=== PATIENT | female | born 1975 | race Caucasian/White ===

== ENCOUNTER 2017-10-18 21:11 | Inpatient (IN) | payer OTHER ==
[2017-10-18] MEDS ORDERED: MAG HYDROX/AL HYDROX/SIMETH 30 ML UDC PO STA (21:34)
[2017-10-18] MEDS ORDERED: FAMOTIDINE 20 MG in SODIUM CHLORIDE 0.9% 50 ML IV ONE (21:34)
[2017-10-18] MEDS ORDERED: LIDOCAINE VISCOUS 2% 15 ML UDC MM STA (21:35)
[2017-10-18 21:40] LABS: BASOPHILS % (AUTO) 0.5 %; EOSINOPHILS # (AUTO) 0.2 10^3/uL (0.0-0.7); EOSINOPHILS % (AUTO) 1.8 %; HGB - HEMOGLOBIN 12.6 g/dL (12.0-16.0); LYMPHOCYTES # (AUTO) 2.2 10^3/uL (1.5-3.5); MEAN CORPUSCULAR HEMOGLOBIN 30.1 pg (27.0-31.0); MEAN CORPUSCULAR HGB CONC 33.8 g/dL (32.0-36.0); MEAN CORPUSCULAR VOLUME 89.3 fL (81.0-99.0); MEAN PLATELET VOLUME 8.2 fL (7.9-10.8); MONOCYTES # (AUTO) 0.7 10^3/uL (0.0-1.0); MONOCYTES % (AUTO) 7.7 %; NEUTROPHILS # (AUTO) 5.8 10^3/uL (1.5-6.6); PLT - PLATELET COUNT 184 10^3/uL (130-450); RED BLOOD COUNT 4.19 10^6/uL (4.20-5.40); RED CELL DISTRIBUTION WIDTH 12.8 % (12.0-15.0); WHITE BLOOD COUNT 8.9 x10^3/uL (4.8-10.8)
[2017-10-18 21:54] LABS: ALBUMIN/GLOBULIN RATIO 1.1 (1.0-2.2); BILIRUBIN,TOTAL 0.3 mg/dL (0.2-1.0); CALCIUM 8.9 mg/dL (8.5-10.3); CREATININE 0.9 mg/dL (0.4-1.0); TOTAL PROTEIN 7.6 g/dL (6.7-8.2)
[2017-10-18 21:58] LABS: TROPONIN I < 0.04 ng/mL (<0.49)
[2017-10-18 22:00] LABS: CREATINE KINASE MB 2.6 ng/mL (0.6-6.3)
--- NOTE | 2017-10-18 22:03 | XRAY Report ---
Procedure Date: 10/18/2017 Accession Number: [id number] / [id number] Procedure: XR - Chest 2 View X-Ray CPT Code: 99048 FULL RESULT: EXAM: CHEST RADIOGRAPHY EXAM DATE: 10/18/2017 09:51 PM. CLINICAL HISTORY: CP. COMPARISON: None. TECHNIQUE: 2 views. FINDINGS: Lungs/Pleura: Clear. No effusion or pneumothorax. Mediastinum: Heart and mediastinal contours are unremarkable. Upper lobe vessels not distended. Other: None. IMPRESSION: No acute disease. RADIA
--- NOTE | 2017-10-18 23:31 | Ultrasound Report ---
Procedure Date: 10/18/2017 Accession Number: [id number] / [id number] Procedure: US - Abdomen Limited CPT Code: FULL RESULT: EXAM: ABDOMEN ULTRASOUND LIMITED, RUQ EXAM DATE: 10/18/2017 11:16 PM. CLINICAL HISTORY: Epigastric pain. COMPARISON: None. TECHNIQUE: Real-time scanning was performed with static images obtained. FINDINGS: Liver: Echotexture within normal limits without suspicious abnormality seen. Main portal vein flow: Hepatopetal. Gallbladder: Multiple gallstones, including an 18 mm stone lodged in the neck. Wall thickening at 4 mm with pericholecystic fluid present. There is reported tenderness. Biliary System: CBD measures 2 mm. No intrahepatic or extrahepatic ductal dilatation. Other: None. IMPRESSION: Findings consistent with acute cholecystitis. RADIA
[2017-10-18] MEDS ORDERED: PROMETHAZINE INJ 25 MG in SODIUM CHLORIDE 0.9% 50 ML IV STA (23:34)
[2017-10-18] MEDS ORDERED: KETOROLAC 60 MG/2 ML VIAL IVP STA (23:35)
[2017-10-18] MEDS ORDERED: diphenhydrAMINE INJ 50 MG/ML VIAL IVP STA (23:35)
[2017-10-18] MEDS ORDERED: HYDROmorphone 1 MG/ML CARPUJECT IVP STA (23:42)
--- NOTE | 2017-10-18 23:43 | ED Physician Documentation ---
History of Present Illness - Stated complaint Stated Complaint: CHEST DISCOMFORT - Chief complaint Chief Complaint: Cardiac - History obtained from History obtained from: Patient - History of Present Illness Timing: Today - Additonal information Additional information: 42-year-old female presents the emergency department with worsening epigastric pain which started this afternoon. The patient's pain has been continuous and worsening and is described as a squeezing sensation which is associated with nausea. No radiation of the symptoms. No triggering factors. No relieving factors. Review of Systems Constitutional: reports: Fatigue. denies: Fever Eyes: denies: Discharge Ears: denies: Ear pain Nose: denies: Congestion Throat: denies: Sore throat Cardiac: reports: Chest pain / pressure Respiratory: reports: Dyspnea GI: reports: Abdominal Pain, Nausea : denies: Dysuria Skin: denies: Rash Musculoskeletal: denies: Joint pain Neurologic: denies: Headache Psychiatric: denies: Depressed Immunocompromised: denies: Chemotherapy PD PAST MEDICAL HISTORY - Present Medications Home Medications: Ambulatory Orders Medication Instructions Recorded Confirmed Sertraline [Zoloft] 50 mg PO DAILY 10/18/17 10/18/17 - Allergies Allergies/Adverse Reactions: Allergies Allergy/AdvReac Type Severity Reaction Status Date / Time No Known Drug Allergies Allergy Verified 10/18/17 21:26 PD ED PE NORMAL - General General: Alert and oriented X 3 - HEENT HEENT: Atraumatic, PERRL, EOMI, Ears normal - Neck Neck: Supple, no meningeal sign - Cardiac Cardiac: RRR, Strong equal pulses - Respiratory Respiratory: No respiratory distress, Clear bilaterally - Abdomen Abdomen: Normal bowel sounds - Derm Derm: Normal color - Extremities Extremities: No deformity, Normal ROM s pain - Neuro Neuro: Alert and oriented X 3, Normal speech - Psych Psych: Normal mood PD ED PE EXPANDED - General General: In Pain - Abdomen Abdomen: Tender to palpation, Epigastric. No: Rebound, Guarding Results - Vitals Vitals: Vital Signs - 24 hr 10/18/17 10/18/17 10/18/17 21:18 21:41 21:56 Temperature 37.1 C Heart Rate 54 L 50 L Respiratory 14 17 15 Rate Blood Pressure 152/90 H 138/97 H O2 Saturation 100 98 10/18/17 10/18/17 23:24 23:31 Temperature Heart Rate 51 L Respiratory 17 16 Rate Blood Pressure 144/90 H O2 Saturation 100 Oxygen O2 Source Room air - EKG (time done) 21:26 Rate: Rate (enter#) Rhythm: NSR Intervals: Normal AK, QRS normal Ischemia: Non specific changes Other comments: Other comments - Labs Labs: Laboratory Tests 10/18/17 10/18/17 10/18/17 21:34 21:34 21:34 WBC 8.9 RBC 4.19 L Hgb 12.6 Hct 37.4 MCV 89.3 MCH 30.1 MCHC 33.8 RDW 12.8 Plt Count 184 MPV 8.2 Neut # (Auto) 5.8 Lymph # (Auto) 2.2 [place] # (Auto) 0.7 Eos # (Auto) 0.2 Baso # (Auto) 0.0 Absolute Nucleated RBC 0.00 Nucleated RBC % 0.0 D-Dimer Sodium Potassium Chloride Carbon Dioxide Anion Gap BUN Creatinine Estimated GFR (MDRD) Glucose Calcium Magnesium 2.0 Total Bilirubin AST ALT Alkaline Phosphatase Total Creatine Kinase 233 CK-MB (CK-2) 2.6 Troponin I < 0.04 Total Protein Albumin Globulin Albumin/Globulin Ratio Lipase 10/18/17 10/18/17 21:34 21:34 WBC RBC Hgb Hct MCV MCH MCHC RDW Plt Count MPV Neut # (Auto) Lymph # (Auto) [place] # (Auto) Eos # (Auto) Baso # (Auto) Absolute Nucleated RBC Nucleated RBC % D-Dimer 202.0 Sodium 135 Potassium 3.9 Chloride 100 L Carbon Dioxide 26 Anion Gap 9.0 BUN 20 Creatinine 0.9 Estimated GFR (MDRD) 68 L Glucose 116 H Calcium 8.9 Magnesium Total Bilirubin 0.3 AST 21 ALT 19 Alkaline Phosphatase 45 Total Creatine Kinase CK-MB (CK-2) Troponin I Total Protein 7.6 Albumin 4.0 Globulin 3.6 Albumin/Globulin Ratio 1.1 Lipase 32 - Rads (name of study) CXR Radiology: Final report received (No acute disease) US ABD Radiology: Final report received (Acute cholecystitis) PD MEDICAL DECISION MAKING - Consults Consults: Other (The case was discussed with the on-call surgeon Dr. Matute who agrees with the plan for admission to the hospital for surgical management of the acute cholecystitis. The findings and plan were discussed with the patient who understands and agrees to the plan) - Sepsis Event Vital Signs: Vital Signs - 24 hr 10/18/17 10/18/17 10/18/17 21:18 21:41 21:56 Temperature 37.1 C Heart Rate 54 L 50 L Respiratory 14 17 15 Rate Blood Pressure 152/90 H 138/97 H O2 Saturation 100 98 10/18/17 10/18/17 23:24 23:31 Temperature Heart Rate 51 L Respiratory 17 16 Rate Blood Pressure 144/90 H O2 Saturation 100 Oxygen O2 Source Room air Departure - Departure Disposition: ED Place in Observation Clinical Impression: Acute epigastric pain, Cholecystitis, acute Condition: Good Discharge Date/Time: 10/19/17 00:20
[2017-10-18] MEDS ORDERED: HYDROmorphone 1 MG/ML CARPUJECT IVP PRN (23:47)
[2017-10-18] MEDS ORDERED: cefOXitin 2 GM in SODIUM CHLORIDE 0.9% MINIBAG 100 ML IV ONE (23:47)
[2017-10-18] MEDS ORDERED: SODIUM CHLORIDE FLUSH 0.9% 10 ML SYRINGE IVP PRN (23:47)
[2017-10-18] MEDS ORDERED: HYDROmorphone 2 MG/ML VIAL IVP PRN (23:51)
[2017-10-18] MEDS ORDERED: ONDANSETRON 4 MG/2 ML VIAL IVP PRN (23:52)
[2017-10-19] MEDS: SODIUM CHLORIDE 0.9% 1,000 ML IV SCH ×3 (00:51→16:36)
[2017-10-19] MEDS: SODIUM CHLORIDE FLUSH 0.9% 10 ML SYRINGE IVP SCH ×3 (03:31→16:39)
[2017-10-19 05:34] LABS: BASOPHILS % (AUTO) 0.6 %; EOSINOPHILS % (AUTO) 0.6 %; HGB - HEMOGLOBIN 13.1 g/dL (12.0-16.0); LYMPHOCYTES # (AUTO) 1.5 10^3/uL (1.5-3.5); LYMPHOCYTES % (AUTO) 18.1 %; MEAN CORPUSCULAR HEMOGLOBIN 30.5 pg (27.0-31.0); MEAN CORPUSCULAR HGB CONC 33.9 g/dL (32.0-36.0); MEAN CORPUSCULAR VOLUME 90.1 fL (81.0-99.0); MEAN PLATELET VOLUME 8.4 fL (7.9-10.8); MONOCYTES # (AUTO) 0.6 10^3/uL (0.0-1.0); MONOCYTES % (AUTO) 6.6 %; NEUTROPHILS # (AUTO) 6.3 10^3/uL (1.5-6.6); NEUTROPHILS % (AUTO) 74.1 %; PLT - PLATELET COUNT 172 10^3/uL (130-450); RED BLOOD COUNT 4.28 10^6/uL (4.20-5.40); RED CELL DISTRIBUTION WIDTH 12.8 % (12.0-15.0); WHITE BLOOD COUNT 8.5 x10^3/uL (4.8-10.8)
[2017-10-19 05:46] LABS: ALBUMIN/GLOBULIN RATIO 1.5 (1.0-2.2); BILIRUBIN,TOTAL 0.5 mg/dL (0.2-1.0); CALCIUM 8.5 mg/dL (8.5-10.3); CREATININE 0.8 mg/dL (0.4-1.0); TOTAL PROTEIN 6.7 g/dL (6.7-8.2)
[2017-10-19] MEDS ORDERED: cefOXitin 1 GM in SODIUM CHLORIDE 0.9% MINIBAG 100 ML IV SCH (08:00)
[2017-10-19] MEDS: SERTRALINE 50 MG TABLET PO SCH (08:34)
[2017-10-19] MEDS ORDERED: SODIUM CHLORIDE 0.9% MINIBAG 100 ML IV ONE (08:36)
[2017-10-19] MEDS ORDERED: cefOXitin 2 GM in SODIUM CHLORIDE 0.9% MINIBAG 100 ML IV ONE (09:00)
--- NOTE | 2017-10-19 11:09 | ANESTHESIA ---
Pre-Anesthesia VS, & Labs cholelithiasis Laparoscopy cholecystectomy Vital Signs: Temp Pulse Resp BP Pulse Ox 37.1 C 55 L 17 110/70 98 10/19/17 08:27 10/19/17 08:27 10/19/17 08:27 10/19/17 08:27 10/19/17 08:27 Height and Weight: Height 5 ft 6 in Weight (kg) 92 kg Body Mass Index 32.7 - NPO NPO: >8 hours - Lab Results Lab results reviewed: Yes Fish Bones: 10/19/17 05:23 10/19/17 05:23 Home Medications and Allergies Home Medications: Ambulatory Orders Medication Instructions Recorded Confirmed Sertraline [Zoloft] 50 mg PO DAILY 10/18/17 10/18/17 Allergies/Adverse Reactions: Allergies Allergy/AdvReac Type Severity Reaction Status Date / Time No Known Drug Allergies Allergy Verified 10/18/17 21:26 Anes History & Medical History - Anesthetic History Anesthesia Complications: reports: No previous complications - Airway/Dental Dental: WNL (caps on front teeth) Mallampati classification: II Thyromental Distance: 4-6 cm - Medical History Cardiovascular: reports: None Pulmonary: reports: None Gastrointestinal: reports: None, Other (nausea, pain post eating-epigastric) Urinary: reports: None Neuro: reports: None, Other (fainted in past) Musculoskeletal: reports: None Endocrine/Autoimmune: reports: None Blood Disorders: reports: None Skin: reports: None Smoking Status: Never smoker Psychosocial: reports: Depression - Surgical History General: Other Eyes Ears Nose Throat (EENT): Tonsil/Adenoidectomy Results - EKG Results EKG Comparison: Reviewed EKG Exam General: Alert, Oriented x3 Respiratory: Lungs clear Cardiovascular: Regular rate Plan Anesthesia Type: General Is this case an emergency?: No
[2017-10-19 11:40] LABS: HCG UR QUAL NEGATIVE
[2017-10-19] MEDS ORDERED: BUPIVACAINE 0.5%-EPI 1:200000 PF 30 ML VIAL ONE ×2 (12:23→17:11)
[2017-10-19] MEDS ORDERED: BUPIVACAINE 0.5%-EPI 1:200000 PF 30 ML VIAL SUBQ ONE ×2 (17:54)
[2017-10-19] MEDS ORDERED: LACTATED RINGERS 1,000 ML IV ONE ×2 (18:08)
[2017-10-19] MEDS ORDERED: ONDANSETRON 4 MG/2 ML VIAL IVP ONE (18:15)
[2017-10-19] MEDS ORDERED: ROCURONIUM 50 MG/5 ML VIAL IVP ONE (18:15)
[2017-10-19] MEDS ORDERED: LIDOCAINE-MPF 2% 5 ML VIAL IM ONE (18:15)
[2017-10-19] MEDS ORDERED: PROPOFOL 200 MG/20 ML VIAL IVP ONE (18:15)
[2017-10-19] MEDS ORDERED: NEOSTIGMINE 1 MG/1 ML 10 ML MDV IVP ONE (18:15)
[2017-10-19] MEDS ORDERED: KETOROLAC 30 MG/ML VIAL IVP ONE (18:15)
[2017-10-19] MEDS ORDERED: MIDAZOLAM 2 MG/2 ML VIAL IVP ONE (18:15)
[2017-10-19] MEDS ORDERED: fentaNYL 100 MCG/2 ML VIAL IVP ONE (18:15)
[2017-10-19] MEDS ORDERED: ACETAMINOPHEN 1,000 MG/100 ML 100 ML IV ONE (18:15)
[2017-10-19] MEDS ORDERED: GLYCOPYRROLATE 1 MG/5 ML VIAL IVP ONE (18:15)
[2017-10-19] MEDS ORDERED: DEXAMETHASONE 4 MG/ML VIAL IVP ONE (18:15)
[2017-10-19] MEDS ORDERED: HYDROcod/ACETAM 5/325 MG TABLET PO PRN ×2 (18:55)
[2017-10-19] MEDS ORDERED: SODIUM CHLORIDE 0.9% 1,000 ML IV SCH (18:57)
[2017-10-19] MEDS: cefOXitin 1 GM in SODIUM CHLORIDE 0.9% MINIBAG 100 ML IV SCH ×2 (19:52→23:03)
--- NOTE | 2017-10-20 01:17 | OPERATIVE REPORT ---
DATE OF SERVICE: 10/19/2017 Physician: David Matute MD PREOPERATIVE DIAGNOSIS: Acute cholecystitis. POSTOPERATIVE DIAGNOSIS: Acute cholecystitis. PROCEDURE: Laparoscopic cholecystectomy. PROCEDURE PERFORMED: Laparoscopic cholecystectomy. OPERATING SURGEON: David Matute MD ANESTHESIA: Sarai Hawley CRNA INDICATIONS FOR PROCEDURE: The patient is a 42-year-old female who has been having intermittent right upper quadrant abdominal pain for the last 6 months. She has it multiple times during the month, lasting up to 12 hours. Her current episode of pain was continuous, and therefore she came into the emergency room. Despite getting IV antibiotics, she continued to have pain in the right upper quadrant. Her liver function tests and white blood cell count was normal. However, she on ultrasound had a stone lodged in the neck of the gallbladder with a thickened gallbladder wall consistent with acute cholecystitis. FINDINGS AT SURGERY: The patient had acutely inflamed gallbladder with a gallstone lodged in the neck of the gallbladder. DESCRIPTION OF PROCEDURE: After informed consent was obtained, the patient was taken to the operating room and placed in supine position. General endotracheal anesthesia was administered. The patient's abdomen was then prepped and draped in the usual sterile fashion. Prior to making an abdominal incision, the skin was injected with local anesthesia at the incision sites. An infraumbilical incision was then made in the skin using a scalpel. A 5 mm Optiview trocar was then inserted through the incision, through the fascia, and into the abdominal cavity under direct vision. The abdomen was then insufflated. On looking inside, no injuries were noted. A 5 mm port was then placed in 3 spots in the right upper quadrant, with the umbilical port switched to a 12 mm port under direct vision. Gallbladder was acutely distended and edematous. The body of the gallbladder was then grasped and lifted anteriorly and superiorly, exposing the triangle of [place]. The peritoneum was then scored in this area, allowing access to the cystic artery and duct. The cystic artery was isolated, clipped proximally and distally, and then divided. A critical view had been obtained. The cystic duct was isolated, clipped proximally and distally, and then divided. The gallbladder was then dissected off the gallbladder bed using electrocautery, placed in an Endobag, and removed through the umbilical port. The right upper quadrant was thoroughly irrigated until return fluid was clear. No bleeding was noted in the gallbladder bed. The ports were then removed, and the abdomen was then desufflated. There was no bleeding noted at the port sites. The umbilical fascial defect was then closed using #0 Vicryl suture. Skin incisions were closed using 4-0 Monocryl subcuticular stitch. Dermabond was then applied to the incision sites. The patient was then awakened, extubated, and taken from the operating room in stable condition. ESTIMATED BLOOD LOSS: 25 mL COMPLICATIONS: None. CONDITION OF THE PATIENT AT THE END OF THE PROCEDURE: Stable. SPECIMENS: None. DRAINS OR PACKS: None. CLASSIFICATION OF WOUND: Clean/contaminated. TD: 10/19/2017 19:11
[2017-10-20] MEDS: SODIUM CHLORIDE FLUSH 0.9% 10 ML SYRINGE IVP SCH ×2 (01:22→08:33)
[2017-10-20] MEDS: cefOXitin 1 GM in SODIUM CHLORIDE 0.9% MINIBAG 100 ML IV SCH (06:35)
[2017-10-20] MEDS: SERTRALINE 50 MG TABLET PO SCH (08:32)
[2017-10-20 08:40] VITALS: BP 108/64
--- NOTE | 2017-10-20 09:01 | Discharge Plan ---
Discharge Plan Disposition: Home, Self Care Prescriptions: HYDROcod/ACETAM 5/325 [[place] 5/325] 1 - 2 tab PO Q4HR PRN #40 tablet PRN Reason: Pain Diet: Regular Activity Restrictions: no lifting over 15 lbs Shower Restrictions: No Driving Restrictions: Yes Weight Bearing: Full Weight No Smoking: If you smoke, Please STOP! Call for help. Follow-up with: Alfredo Ordoñez DO [Primary Care Provider] - 2 Weeks MARY SMITH MD [Provider Admit Priv/Credential] - 1 Week
== END 2017-10-20 09:30 | disposition home or self-care (01) | DRG 419 ==
LOC: ED 21:11 → MS3 23:47 → OBSVTOIN 10-19 18:56
PROVIDERS: ADMIT Surgery; ATTEND Surgery
PROC: 0FT44ZZ Resection of Gallbladder, Percutaneous Endoscopic Approach (ICD-10-PCS; principal; 2017-10-19 15:45)
DX: K80.00 Calculus of gallbladder with acute cholecystitis without obstruction (principal); F32.9 Major depressive disorder, single episode, unspecified
CPT/HCPCS: 36415; 71046; 76705; 80053; 81025; 82550; 82553; 83690; 83735; 84484; 85025; 85379; 93005; 96361; 96365; 96367; 96375; 99284; 99285

== ENCOUNTER 2018-04-11 12:22 | Emergency (ER) | payer OTHER ==
[2018-04-11 13:59] LABS: BASOPHILS % (AUTO) 0.3 %; EOSINOPHILS # (AUTO) 0.1 10^3/uL (0.0-0.7); EOSINOPHILS % (AUTO) 1.4 %; HGB - HEMOGLOBIN 13.5 g/dL (12.0-16.0); LYMPHOCYTES # (AUTO) 1.4 10^3/uL (1.5-3.5); LYMPHOCYTES % (AUTO) 23.4 %; MEAN CORPUSCULAR HEMOGLOBIN 27.9 pg (27.0-31.0); MEAN PLATELET VOLUME 8.4 fL (7.9-10.8); MONOCYTES # (AUTO) 0.5 10^3/uL (0.0-1.0); NEUTROPHILS % (AUTO) 66.9 %; PLT - PLATELET COUNT 197 10^3/uL (130-450); RED BLOOD COUNT 4.85 10^6/uL (4.20-5.40); RED CELL DISTRIBUTION WIDTH 11.8 % (12.0-15.0)
[2018-04-11 14:13] LABS: ALBUMIN 4.2 g/dL (3.2-5.5); ALBUMIN/GLOBULIN RATIO 1.4 (1.0-2.2); BILIRUBIN,TOTAL 0.6 mg/dL (0.2-1.0); CALCIUM 9.6 mg/dL (8.5-10.3); CREATININE 0.6 mg/dL (0.4-1.0); TOTAL PROTEIN 7.2 g/dL (6.7-8.2)
[2018-04-11] MEDS ORDERED: ATENOLOL 25 MG TABLET PO STA (15:05)
--- NOTE | 2018-04-11 15:08 | ED Physician Documentation ---
PD HPI CHEST PAIN - Stated complaint Stated Complaint: RHR/ANXIOUS/HX OF GRAVES - Chief complaint Chief Complaint: Cardiac - History obtained from History obtained from: Patient - History of Present Illness Timing - onset: Other (This is a 43-year-old woman who for the last couple of months has been having problems with palpitations anxiety and sweats as well as weight loss. She was diagnosed in early February with hyperthyroidism due to Graves' disease. At that time her TSH was low and her antibodies and immunoglobulin were high. She was referred to an eap specialist who recommended only radio ablation and they did not really establish a good rapport so she went to a natural [facility] who referred her back today for continued symptomatology. She had labs done a few days ago showing a free T3 of 14.8, free T4 of 4.87 and a TSH of less than 0.005.) Review of Systems Constitutional: reports: Fatigue, Sweats. denies: Fever, Chills Cardiac: reports: Palpitations Respiratory: denies: Dyspnea, Cough PD PAST MEDICAL HISTORY - Past Medical History Past Medical History: Yes Cardiovascular: None Respiratory: None Neuro: None, Other Endocrine/Autoimmune: None, HyPERthyroidism GI: None, Other PILLAR MAN: None : None HEENT: None Psych: Depression, Post traumatic stress disorder Musculoskeletal: None Derm: None - Past Surgical History Past Surgical History: Yes General: Cholecystectomy, Other /PILLAR MAN: section HEENT: Tonsil/Adenoidectomy - Present Medications Home Medications: Ambulatory Orders Medication Instructions Recorded Confirmed Sertraline [Zoloft] 50 mg PO DAILY 10/18/17 10/19/17 Mometasone Furoate [Nasonex] 2 sprays NS DAILY PRN 10/19/17 10/19/17 Atenolol 25 mg PO DAILY #30 tablet 04/11/18 Chlorella 04/11/18 Cholecalciferol [Vitamin D3] 04/11/18 Detox Homeopathic 04/11/18 Hyper Thyroid Drops Homeopathi 04/11/18 Hyperthyroid Tincture 04/11/18 Milk Thistle/Nac/Dandel/[place] 04/11/18 [Liver Complex Tablet] Multivitamin with Minerals 04/11/18 [Biosupp] methIMAzole [Methimazole] 3 tab PO DAILY #90 tablet 04/11/18 - Allergies Allergies/Adverse Reactions: Allergies Allergy/AdvReac Type Severity Reaction Status Date / Time No Known Drug Allergies Allergy Verified 04/11/18 12:43 - Social History Does the pt smoke?: No Smoking Status: Never smoker Does the pt drink ETOH?: Yes Does the pt have substance abuse?: No - Immunizations Immunizations are current?: Yes - POLST Patient has POLST: No PD ED PE NORMAL - Vitals Vital signs reviewed: Yes - General General: Alert and oriented X 3, No acute distress - HEENT HEENT: Other (No exophthalmos or goiter) - Cardiac Cardiac: RRR, No murmur - Respiratory Respiratory: No respiratory distress, Clear bilaterally - Abdomen Abdomen: Non tender - Neuro Neuro: Alert and oriented X 3, Normal speech Results - Vitals Vitals: Vital Signs - 24 hr 04/11/18 04/11/18 12:40 14:49 Temperature 36.9 C Heart Rate 88 81 Respiratory 16 17 Rate Blood Pressure 129/89 H 129/76 O2 Saturation 100 100 Oxygen O2 Source Room air - Labs Labs: Laboratory Tests 04/11/18 04/11/18 04/11/18 13:36 13:36 13:36 WBC 6.0 RBC 4.85 Hgb 13.5 Hct 39.8 MCV 82.0 MCH 27.9 MCHC 34.0 RDW 11.8 L Plt Count 197 MPV 8.4 Neut # (Auto) 4.0 Lymph # (Auto) 1.4 L [place] # (Auto) 0.5 Eos # (Auto) 0.1 Baso # (Auto) 0.0 Absolute Nucleated RBC 0.00 Nucleated RBC % 0.0 Sodium 136 Potassium 3.9 Chloride 102 Carbon Dioxide 26 Anion Gap 8.0 BUN 10 Creatinine 0.6 Estimated GFR (MDRD) 109 Glucose 128 H Calcium 9.6 Total Bilirubin 0.6 AST 57 H ALT 75 H Alkaline Phosphatase 45 Troponin I < 0.04 Total Protein 7.2 Albumin 4.2 Globulin 3.0 Albumin/Globulin Ratio 1.4 Lipase 34 PD MEDICAL DECISION MAKING - ED course ED course: We discussed options for initial treatment of Graves' disease and after discussion opted for atenolol and methimazole. She understands she will need to have serial lab draws and eventually follow-up with a different endocri nologist. Departure - Departure Disposition: 01 Home, Self Care Clinical Impression: Graves disease, Hyperthyroidism Condition: Good Record reviewed to determine appropriate education?: Yes Instructions: Hyperthyroidism Dc Prescriptions: Atenolol 25 mg PO DAILY #30 tablet methIMAzole [Methimazole] 3 tab PO DAILY #90 tablet Comments: As discussed she will need frequent lab draws to make sure that your liver enzymes are not worsening and you do not develop agranulocytosis. I recommend a lab draw in 1 week, 2 weeks, and then monthly. Also you will need repeat lab draws to follow your thyroid function to see if the medications are working. [place].
[2018-04-11 15:20] VITALS: BP 143/76
== END 2018-04-11 15:23 | disposition home or self-care (01) ==
LOC: ED 12:22
DX: E05.00 Thyrotoxicosis with diffuse goiter without thyrotoxic crisis or storm (principal)
CPT/HCPCS: 36415; 80053; 83690; 84484; 85025; 93005; 99283; A9270

== ENCOUNTER 2018-06-11 10:58 | Outpatient (CLI) | payer OTHER ==
[2018-06-11 12:43] LABS: THYROID STIMULATING HORMONE < 0.08 uIU/mL (0.34-5.60)
[2018-06-11 12:45] LABS: FREE T4 (FREE THYROXINE) 1.57 ng/dL (0.58-1.64)
== END 2018-06-11 10:59 | disposition home or self-care (01) ==
LOC: LAB 10:58
PROVIDERS: ATTEND Naturopath
DX: E05.90 Thyrotoxicosis, unspecified without thyrotoxic crisis or storm (principal)
CPT/HCPCS: 36415; 81599; 84432; 84439; 84443; 84481; 86800

== ENCOUNTER 2021-05-12 08:00 | Outpatient (CLI) | payer OTHER | END 2021-05-12 23:59 | LOC: LAB.N 08:00 | PROVIDERS: ATTEND Physician Assistant Medical | DX: U07.1 COVID-19 (principal) ==